=== PATIENT | female | born 1940 | race Caucasian/White ===

== ENCOUNTER → 2016-10-28 | Outpatient (CLI) | payer OTHER ==
[~2016-10-28] MED LIST: ACTOS 30 MG TAB30 M2 PO; ATENOLOL 50MG T50 M1 PO; AUGMENTIN 875875 MG PO; BAYER CHEWABLE81 MG PO; DUONEB 2.5-0.5 M3 ML INH; GARLIC1 EACH PO; HYDROCHLOROTHIA25 M2 PO; JANUVIA100 MG PO; JANUVIA25 MG PO; LEVOTHYROXINE0.05 MG PO; LIPITOR 20 MG T20 M1 PO; LISINOPRIL40 MG PO; MUCINEX TA600 MG/TA2 PO; TESSALON PERLE100 M1 PO
== END ==
LOC: ULTRA 09:46
DX: H93.A3 Pulsatile tinnitus, bilateral (principal); R55 Syncope and collapse

== ENCOUNTER → 2018-08-09 | Outpatient (CLI) | payer OTHER | LOC: ULTRA 10:43 | DX: E11.621 Type 2 diabetes mellitus with foot ulcer (principal); L97.528 Non-pressure chronic ulcer of other part of left foot with other specified severity; I11.0 Hypertensive heart disease with heart failure; I50.9 Heart failure, unspecified ==

== ENCOUNTER → 2020-03-21 | Outpatient (CLI) | payer OTHER | LOC: RAD 11:44 | PROVIDERS: ATTEND Pediatrics | DX: J81.0 Acute pulmonary edema (principal); I51.7 Cardiomegaly; I50.9 Heart failure, unspecified; J84.10 Pulmonary fibrosis, unspecified ==

== ENCOUNTER → 2020-05-02 | Outpatient (CLI) | payer OTHER | LOC: RAD 12:24 | PROVIDERS: ATTEND Pediatrics | DX: R91.8 Other nonspecific abnormal finding of lung field (principal) ==

== ENCOUNTER → 2020-06-18 | Outpatient (CLI) | payer OTHER | LOC: HYPER 08:50 | PROVIDERS: ATTEND Specialist | DX: E11.622 Type 2 diabetes mellitus with other skin ulcer (principal); I87.312 Chronic venous hypertension (idiopathic) with ulcer of left lower extremity; L97.222 Non-pressure chronic ulcer of left calf with fat layer exposed; S80.812A Abrasion, left lower leg, initial encounter; E11.22 Type 2 diabetes mellitus with diabetic chronic kidney disease; I12.9 Hypertensive chronic kidney disease with stage 1 through stage 4 chronic kidney disease, or unspecified chronic kidney disease; N18.9 Chronic kidney disease, unspecified; E66.01 Morbid (severe) obesity due to excess calories; E78.5 Hyperlipidemia, unspecified; J42 Unspecified chronic bronchitis; Z68.41 Body mass index [BMI] 40.0-44.9, adult; Z79.4 Long term (current) use of insulin; Z79.82 Long term (current) use of aspirin; W31.89XA Contact with other specified machinery, initial encounter; Z98.49 Cataract extraction status, unspecified eye; Y93.89 Activity, other specified; Y92.89 Other specified places as the place of occurrence of the external cause; Y99.8 Other external cause status ==

== ENCOUNTER → 2020-06-25 | Outpatient (CLI) | payer OTHER | LOC: HYPER 10:42 | PROVIDERS: ATTEND Specialist | DX: E11.622 Type 2 diabetes mellitus with other skin ulcer (principal); I87.312 Chronic venous hypertension (idiopathic) with ulcer of left lower extremity; I70.248 Atherosclerosis of native arteries of left leg with ulceration of other part of lower leg; L97.822 Non-pressure chronic ulcer of other part of left lower leg with fat layer exposed; I70.242 Atherosclerosis of native arteries of left leg with ulceration of calf; L97.222 Non-pressure chronic ulcer of left calf with fat layer exposed; S80.812D Abrasion, left lower leg, subsequent encounter; E11.22 Type 2 diabetes mellitus with diabetic chronic kidney disease; I12.9 Hypertensive chronic kidney disease with stage 1 through stage 4 chronic kidney disease, or unspecified chronic kidney disease; N18.9 Chronic kidney disease, unspecified; E66.01 Morbid (severe) obesity due to excess calories; E78.5 Hyperlipidemia, unspecified; J42 Unspecified chronic bronchitis; Z68.41 Body mass index [BMI] 40.0-44.9, adult; Z79.4 Long term (current) use of insulin; Z79.82 Long term (current) use of aspirin; W31.89XD Contact with other specified machinery, subsequent encounter ==

== ENCOUNTER → 2020-06-27 | Outpatient (CLI) | payer OTHER | LOC: ULTRA 10:51 | PROVIDERS: ATTEND Neuromusculoskeletal Medicine & OMM | DX: M79.89 Other specified soft tissue disorders (principal) ==

== ENCOUNTER → 2020-07-02 | Outpatient (CLI) | payer OTHER | LOC: HYPER 07:46 | PROVIDERS: ATTEND Specialist | DX: E11.622 Type 2 diabetes mellitus with other skin ulcer (principal); I87.312 Chronic venous hypertension (idiopathic) with ulcer of left lower extremity; I70.248 Atherosclerosis of native arteries of left leg with ulceration of other part of lower leg; L97.822 Non-pressure chronic ulcer of other part of left lower leg with fat layer exposed; I70.242 Atherosclerosis of native arteries of left leg with ulceration of calf; L97.222 Non-pressure chronic ulcer of left calf with fat layer exposed; S80.812D Abrasion, left lower leg, subsequent encounter; E11.22 Type 2 diabetes mellitus with diabetic chronic kidney disease; I12.9 Hypertensive chronic kidney disease with stage 1 through stage 4 chronic kidney disease, or unspecified chronic kidney disease; N18.9 Chronic kidney disease, unspecified; E66.01 Morbid (severe) obesity due to excess calories; E78.5 Hyperlipidemia, unspecified; J42 Unspecified chronic bronchitis; Z68.41 Body mass index [BMI] 40.0-44.9, adult; Z79.4 Long term (current) use of insulin; Z79.82 Long term (current) use of aspirin; W31.89XD Contact with other specified machinery, subsequent encounter ==

== ENCOUNTER → 2020-07-09 | Outpatient (CLI) | payer OTHER | LOC: HYPER 09:57 | PROVIDERS: ATTEND Specialist | DX: E11.622 Type 2 diabetes mellitus with other skin ulcer (principal); I87.312 Chronic venous hypertension (idiopathic) with ulcer of left lower extremity; I70.248 Atherosclerosis of native arteries of left leg with ulceration of other part of lower leg; L97.822 Non-pressure chronic ulcer of other part of left lower leg with fat layer exposed; I70.242 Atherosclerosis of native arteries of left leg with ulceration of calf; L97.222 Non-pressure chronic ulcer of left calf with fat layer exposed; S80.812D Abrasion, left lower leg, subsequent encounter; E11.22 Type 2 diabetes mellitus with diabetic chronic kidney disease; I12.9 Hypertensive chronic kidney disease with stage 1 through stage 4 chronic kidney disease, or unspecified chronic kidney disease; N18.9 Chronic kidney disease, unspecified; E11.51 Type 2 diabetes mellitus with diabetic peripheral angiopathy without gangrene; E66.01 Morbid (severe) obesity due to excess calories; E78.5 Hyperlipidemia, unspecified; J42 Unspecified chronic bronchitis; Z68.41 Body mass index [BMI] 40.0-44.9, adult; Z79.82 Long term (current) use of aspirin; Z79.4 Long term (current) use of insulin; W31.89XD Contact with other specified machinery, subsequent encounter ==

== ENCOUNTER → 2020-07-09 | Outpatient (CLI) | payer OTHER | LOC: SJCVCIMAG 11:59 | PROVIDERS: ATTEND Specialist | DX: I73.9 Peripheral vascular disease, unspecified (principal) ==

== ENCOUNTER → 2020-07-16 | Outpatient (CLI) | payer OTHER | LOC: HYPER 08:47 | PROVIDERS: ATTEND Specialist | DX: E11.622 Type 2 diabetes mellitus with other skin ulcer (principal); I87.312 Chronic venous hypertension (idiopathic) with ulcer of left lower extremity; I70.248 Atherosclerosis of native arteries of left leg with ulceration of other part of lower leg; L97.822 Non-pressure chronic ulcer of other part of left lower leg with fat layer exposed; I70.242 Atherosclerosis of native arteries of left leg with ulceration of calf; L97.222 Non-pressure chronic ulcer of left calf with fat layer exposed; S80.812D Abrasion, left lower leg, subsequent encounter; E11.22 Type 2 diabetes mellitus with diabetic chronic kidney disease; I12.9 Hypertensive chronic kidney disease with stage 1 through stage 4 chronic kidney disease, or unspecified chronic kidney disease; N18.9 Chronic kidney disease, unspecified; E11.51 Type 2 diabetes mellitus with diabetic peripheral angiopathy without gangrene; E66.01 Morbid (severe) obesity due to excess calories; E78.5 Hyperlipidemia, unspecified; J42 Unspecified chronic bronchitis; Z68.41 Body mass index [BMI] 40.0-44.9, adult; Z79.82 Long term (current) use of aspirin; Z79.4 Long term (current) use of insulin; W31.89XD Contact with other specified machinery, subsequent encounter ==

== ENCOUNTER → 2020-08-06 | Outpatient (CLI) | payer OTHER | LOC: HYPER 13:51 | PROVIDERS: ATTEND Emergency Medicine | DX: E11.622 Type 2 diabetes mellitus with other skin ulcer (principal); I87.312 Chronic venous hypertension (idiopathic) with ulcer of left lower extremity; I70.248 Atherosclerosis of native arteries of left leg with ulceration of other part of lower leg; L97.822 Non-pressure chronic ulcer of other part of left lower leg with fat layer exposed; I70.242 Atherosclerosis of native arteries of left leg with ulceration of calf; L97.222 Non-pressure chronic ulcer of left calf with fat layer exposed; S80.812D Abrasion, left lower leg, subsequent encounter; E11.22 Type 2 diabetes mellitus with diabetic chronic kidney disease; I12.9 Hypertensive chronic kidney disease with stage 1 through stage 4 chronic kidney disease, or unspecified chronic kidney disease; N18.9 Chronic kidney disease, unspecified; E11.51 Type 2 diabetes mellitus with diabetic peripheral angiopathy without gangrene; E66.01 Morbid (severe) obesity due to excess calories; E78.5 Hyperlipidemia, unspecified; J42 Unspecified chronic bronchitis; Z68.41 Body mass index [BMI] 40.0-44.9, adult; Z79.82 Long term (current) use of aspirin; Z79.4 Long term (current) use of insulin; W31.89XD Contact with other specified machinery, subsequent encounter ==

== ENCOUNTER 2020-08-14 16:53 | Inpatient (IN) | payer OTHER ==
[~2020-08-14] VITALS: Ht 152.4 cm; Wt 106.1 kg
[2020-08-14 17:02] VITALS: BP 111/49
[2020-08-14] MEDS ORDERED: CRANBERRY200 MG PO (17:43)
[2020-08-14] MEDS ORDERED: LOSARTAN POTASS50 MG PO (17:43)
[2020-08-14] MEDS ORDERED: FUROSEMIDE 20 M20 M1 PO (17:46)
[2020-08-14 17:53] LABS: ABSOLUTE NEUTROPHILS 6.6 thou/uL (1.4-8.2); BASOPHILS 1.1 % (0.0-2.0); EOSINOPHILS 2.6 % (0.0-3.0); HEMATOCRIT 34.7 % (37.0-47.0); HEMOGLOBIN 11.2 gm/dL (12.0-15.0); LYMPHOCYTES 13.6 % (24.0-44.0); MCH 29.9 pg (26.0-34.0); MCHC 32.4 g/dL (28.0-37.0); MCV 92.2 fL (80.0-100.0); MONOCYTES 6.4 % (1.0-8.0); PLATELET COUNT 247 thou/uL (150-400); POLYS 76.3 % (36.0-66.0); RBC 3.76 mil/uL (4.20-5.00); RDW 14.9 % (10.5-14.5); WBC 8.7 thou/uL (4.0-11.0)
[2020-08-14 18:01] LABS: ANION GAP 5 mmol/L (7-16); BUN 31 mg/dL (7-18); CHLORIDE 104 mmol/L (98-107); CO2 31 mmol/L (21-32); GLUCOSE 115 mg/dL (74-106); POTASSIUM 4.5 mmol/L (3.5-5.1); SODIUM 140 mmol/L (136-145)
[2020-08-14 18:12] LABS: ALBUMIN 3.3 g/dL (3.4-5.0); SGOT 21 U/L (15-37); SGPT 21 U/L (30-65); TOTAL BILIRUBIN 0.4 mg/dL (0.2-1.0); TOTAL PROTEIN 6.7 g/dL (6.4-8.2); TROPONIN-I <0.06 ng/mL (<0.06)
[2020-08-14 20:05] VITALS: BP 125/73
[2020-08-14 21:20] VITALS: BP 117/48
--- NOTE | 2020-08-14 22:30 | NUR ---
PT IS ALERT AND ORIENTED X4. LUNGS ARE CLEAR ON ROOM AIR. DENIES ANY PAIN. REPORTS SHE KRISTIE LIGHT HEADED YESTERDAY. AND BRADYCARDIA NOTED SO ADMISSION TO ROOM 219 VIA WHEEL CHAIR. PT IS PLEASANT. REPORTS SHE SEES A WOUND DOCTOR FOR HER LEFT LOWER LEG. CURENTLY SHE HAS ZERFORM ON IT. REPORTS PUTTING A CREAM ON IT TOO. ABDOMEN IS ROUND AND SOFT. BOWEL SOUNDS ACTIVE X4. BLOOD SUGAR TAKEN ON ADMISSION AND WNL. CALL LIGHT WITHIN REACH IF NEEDS ASSISTANCE. WILL CONTINUE TO MONITOR AND ASSESS
[2020-08-15] VITALS: BP 131/73
[2020-08-15 04:56] VITALS: BP 116/22
[2020-08-15 05:52] LABS: CALCIUM 9.3 mg/dL (8.5-10.1); CREATININE 1.8 mg/dL (0.6-1.0); POTASSIUM 4.3 mmol/L (3.5-5.1)
--- NOTE | 2020-08-15 07:20 | EKG ---
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[place] : 1940 Requested By: Joey Zavala Order Number: [id number] MD: Dwight Faye Measurements Intervals [place] Rate: 62 P: 0 NM: 249 QRS: -42 QRSD: 107 T: 62 QT: 436 QTc: 443 Interpretive Statements Sinus rhythm Prolonged NM interval Left anterior fascicular block Abnormal R-wave progression, late transition Compared to ECG 08/14/2020 17:09:24 First degree AV block now present Left anterior fascicular block now present Junctional rhythm no longer present Ventricular premature complex(es) no longer present Myocardial infarct finding no longer present Left ventricular hypertrophy no longer present Q waves no longer present Electronically Signed On 08-15-2020 7:20:12 TECHNICAL SOLUTIONS CONSULTANT by Dwight Faye [email or web address] <ELECTRONICALLY SIGNED> By: Dwight Faye MD, [facility] 08/15/20 07 48 48 Dwight Faye MD, [facility] /EPI
--- NOTE | 2020-08-15 07:20 | EKG ---
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 : 1940 Requested By: Cassidy Donovan Order Number: [id number] MD: Dwight Faye Measurements Intervals [place] Rate: 39 P: TX: QRS: -56 QRSD: 92 T: 78 QT: 472 QTc: 381 Interpretive Statements Junctional rhythm Ventricular premature complex Inferior infarct, old Baseline wander in lead(s) V6 Compared to ECG 01/07/2014 21:57:46 Junctional rhythm now present Ventricular premature complex(es) now present Myocardial infarct finding now present Left ventricular hypertrophy now present Q waves now present Sinus rhythm no longer present Left-axis deviation no longer present Electronically Signed On 08-15-2020 7:19:45 INSPECTOR [employer] COMMODITIES by Dwight Faye [email or web address] <ELECTRONICALLY SIGNED> By: Dwight Faye MD, FACC 08/15/20 0719 170 170 Dwight Faye MD, [facility] /EPI
--- NOTE | 2020-08-15 10:01 | 2DMMODE ---
[facility] [place] [address] 2 D/M-MODE ECHOCARDIOGRAM Name: KESHAWN DOMINGUEZ Gayatri Room #: 219-P [facility] M.R.#: [id number] Admission: 08/14/20 Attend Phys: Ivis Santiago Discharge: Date of : 40 Report #: [id number] THIS REPORT FOR: cc: Shaka Valdez,Dwight Chowdary MD [facility] ~ APPROVED REPORT Study performed: 08/15/2020 08:28:20 EXAM: Comprehensive 2D, Doppler, and color-flow Echocardiogram Patient Location: Bedside Room #: 219 Status: routine BSA: 2.00 HR: 53 bpm BP: 131/73 mmHg Rhythm: Bradycardia Other Information Study Quality: Good Indications Congestive Heart Failure Diabetes Dyspnea Hypertension/HDD 2D Dimensions RVDd: 32.89 mm IVSd: 10.22 (7-11mm) LVOT Diam: 18.16 (18-24mm) LVDd: 47.97 mm PWd: 9.59 (7-11mm) Ascending Ao: 29.22 (22-36mm) LVDs: 34.35 (25-40mm) Left Atrium: 33.92 (27-40mm) Aortic Root: 26.41 mm IVC: 19.00 mm Volumes Left Atrial Volume (Systole) Single Plane 4CH: 64.82 mL Single Plane 2CH: 52.44 mL LA ESV Index: 31.00 mL/m2 Aortic Valve AoV Peak Beka.: 1.98 m/s [facility] [place] [address] 2 D/M-MODE ECHOCARDIOGRAM Name: KESHAWN DOMINGUEZ Room #: 219-P [facility] IN .R.#: [id number] Admission: 08/14/20 Attend Phys: Ivis Newman Discharge: Date of : 40 Report #: [id number] AO Peak Gr.: 15.70 mmHg LVOT Max P.75 mmHg LVOT Max V: 1.30 m/s KATHRYN Vmax: 1.70 cm2 AI Vmax: 3.44 m/s AI Mitchell: 2.99 m/s2 AI PHT: 333.13 ms Mitral Valve E/A Ratio: 0.9 MV Decel. Time: 254.95 ms MV E Max Beka.: 1.10 m/s MV A Beka.: 1.26 m/s MV PHT: 73.93 ms IVRT: 64.59 ms Pulmonary Valve PV Peak Beka.: 1.53 m/s PV Peak Gr.: 9.36 mmHg Pulmonary Vein P Vein S: 0.82 m/s P Vein A: 0.32 m/s P Vein D: 0.60 m/s P Vein A Dur.: 152.2 msec P Vein S/D Ratio: 1.37 Tricuspid Valve TR Peak Beka.: 2.91 m/s TR Peak Gr.: 33.81 mmHg PA Pressure: 39.00 mmHg Left Ventricle The left ventricle is normal size. There is normal LV segmental wall motion. There is normal left ventricular wall thickness. The left ventricular systolic function is normal. The left ventricular ejection fraction is within the normal range. LVEF is 55-60%. Grade I - abnormal relaxation pattern. Right Ventricle The right ventricle is normal size. The right ventricular systolic function is normal. Atria Left atrium is borderline dilated. Right atrium is at the upper limits of normal. Aortic Valve The aortic valve is normal in structure. The Aortic valve is sclerotic. Trace aortic regurgitation. There is no aortic valvular [facility] [address] [place] [address] 2 D/M-MODE ECHOCARDIOGRAM Name: KESHAWN DOMINGUEZ Room #: 219-P [facility] IN .R.#: [id number] Admission: 08/14/20 Attend Phys: Ivis Newman Discharge: Date of : 40 Report #: [id number] stenosis. Mitral Valve The mitral valve is normal in structure. Mild mitral regurgitation. No evidence of mitral valve stenosis. Tricuspid Valve The tricuspid valve is normal in structure. There is trace tricuspid regurgitation. Estimated PAP 39 mmHg. There is mild pulmonary hypertension. Pulmonic Valve The pulmonary valve is normal in structure. There is no pulmonic valvular regurgitation. Great Vessels The aortic root is normal in size. IVC is normal in size and collapses >50% with inspiration. Pericardium There is no pericardial effusion. <Conclusion> Normal left ventricular size/wall thickness Ejection fraction 55% Grade 1 diastolic dysfunction Normal right ventricular size/function Normal atrial size Aortic valve sclerosis without stenosis Trace aortic valve insufficiency Mild mitral annular calcification Mild mitral insufficiency Trace tricuspid valve insufficiency Pulmonary artery systolic pressure estimated at 39 mmHg No pericardial effusion <ELECTRONICALLY SIGNED> By: Dwight Faye MD, FACC 08/15/20 1001 1001 1001 Dwight Faye MD, FACC /INF
[2020-08-15 10:30] VITALS: BP 147/96
[2020-08-15 11:15] VITALS: BP 122/50
--- NOTE | 2020-08-15 12:46 | NUR ---
Patient admits to [facility] with SOA/weakness/bradycardia. Patient resides at home with spouse and 5 dogs. She had a dtr who last year from COPD. She reports 2 steps to enter home then 7 steps to main living area. She has a walker. In community she will use grocery cart or store scooter for shopping. She reports no difficulty with steps due to railing. Patient has oxygen at home but cannot recall company. Independent with adls. She and spouse cont to drive. She cont to drive. casemgt following.
[2020-08-15 17:00] VITALS: BP 128/58
--- NOTE | 2020-08-15 18:38 | NUR ---
PT IS AXOX4, PLEASANT. AFEBRILE, HR BEGAN BRADYCARDIC. VSS. CARDIOLOGY CONSULTED, WOUND CARE CONSULTED. EKG AND ECG COMPLETED IN AM. WOUND CARE PROVIDED ON LEFT LOWER LEG. PT ON STRICT I&O, FLUID RESTRICTION OF 1750ML. POC IS TO DISCHARGE 08/16/20. PT AT BEDSIDE THIS PM. NO CONCERNS AT THIS TIME.
[2020-08-15 20:30] VITALS: BP 121/83
[2020-08-16 04:45] VITALS: BP 122/51
[2020-08-16 05:30] LABS: ANION GAP 7 mmol/L (7-16); BUN 38 mg/dL (7-18); CALCIUM 8.7 mg/dL (8.5-10.1); CHLORIDE 100 mmol/L (98-107); CO2 30 mmol/L (21-32); CREATININE 1.9 mg/dL (0.6-1.0); GLUCOSE 111 mg/dL (74-106); PHOSPHORUS 4.2 mg/dL (2.5-4.9); POTASSIUM 3.5 mmol/L (3.5-5.1); SODIUM 137 mmol/L (136-145); TROPONIN-I <0.06 ng/mL (<0.06)
--- NOTE | 2020-08-16 07:02 | NUR ---
PT IS ALERT AND ORIENTED X4. LUNGS ARE COARSE ON 2 LITERS NASAL CANULA AT THIS TIME. WOUND OF LEFT LOWER LEG CHANGED AND DRESSING DONE THIS AM WITH CARE. ACURATE INTAKE AND OUTPUT AND FLUID RESTRICTION MAINTATINED. UP AMBULATES TO BATHROOM. DOES WANT SOMETHING LIKE MUCINEX SHE REQUEST THIS AM. FEELS LIKE SHE NEEDS SOMETHING TO DRY HER CONGESTION UP. WILL CONTINUE TO MONTIOR AND ASSESS PER NURSING
--- NOTE | 2020-08-16 07:10 | EKG ---
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 : 1940 Requested By: Vivian Sow Order Number: [id number] MD: Dwight Faye Measurements Intervals [place] Rate: 63 P: 43 VA: 179 QRS: -42 QRSD: 92 T: 52 QT: 442 QTc: 453 Interpretive Statements Sinus rhythm Multiple premature complexes, vent & supraven Abnormal R-wave progression, late transition Compared to ECG 08/14/2020 18:49:27 First degree AV block no longer present Electronically Signed On 08-16-2020 7:10:05 HEALTHCARE SPECIALIST by Dwight Fyae [email or web address] <ELECTRONICALLY SIGNED> By: Dwight Faye MD, [facility] 08/16/20 0710 6 0807 Dwight Faye MD, [facility] /EPI
[2020-08-16 07:53] VITALS: BP 127/57
--- NOTE | 2020-08-16 09:12 | NUR ---
assess due to pt with chronic lower extremity ulcer. Admit with CHF, pulmonary edema. On lasix, torsemide. Class III extreme obesity with BMI of 45.7. Good appetite, high protein food choices. Pt on low Na, carb control and 1750ml fluid restriction. Reviewed diet with pt and encouraged compliance at home. Pt verbalized understanding. Hoping to dc today. Low nutrition risk
[2020-08-16] MEDS ORDERED: TORSEMIDE20 MG PO (09:34)
[2020-08-16 09:48] VITALS: BP 127/57
--- NOTE | 2020-08-22 09:18 | HC ---
[facility] [place] [address] CONSULTATION Name: KESHAWN DOMINGUEZ Room #: 219-P [facility] IN M.R.#: [id number] Admission: 08/15/20 Attend Phys: Ivis Santiago Discharge: 08/16/20 Date of : 40 Report #: [id number] THIS REPORT FOR: cc: Shaka Valdez,Shaka Lux,Jaden Hoover MD ~ DATE OF SERVICE: 08/15/2020 WOUND CARE CONSULTATION PERSONAL PHYSICIAN: Dr. Valdez. CHIEF COMPLAINT: Left lower leg ulcerations. HISTORY OF PRESENT ILLNESS: The patient is an 80-year-old white female who is admitted for complaints of increasing shortness of breath over the past several days. The patient has been followed by us in the wound clinic for left lower extremity venous leg ulcers. The patient was just seen this past week and was doing well. We have been asked to follow the leg ulcers while she is here in the hospital. The patient denies any other new ulcerations. PAST MEDICAL HISTORY: Significant for hypertension, hyperlipidemia, diabetes mellitus, previous DVT, congestive heart failure. CURRENT MEDICATIONS: Multiple, I reviewed the patient's medication list. DRUG ALLERGIES: None. SOCIAL HISTORY: The patient does not smoke or drink alcohol. FAMILY HISTORY: Not pertinent to current medical condition. REVIEW OF SYSTEMS: CONSTITUTIONAL: The patient denies fevers or chills. NEUROLOGIC: The patient has overall generalized weakness, but no isolated weakness in arms or legs. EYES: No complaints. ENT: No complaints. CARDIAC: The patient has chronic lower extremity edema, but denies chest pain or palpitation. RESPIRATORY: The patient complains of increasing shortness of breath over the past several days with associated dry cough. GASTROINTESTINAL: The patient denies nausea, vomiting, or abdominal pain. GENITOURINARY: The patient denies urgency or frequency. MUSCULOSKELETAL: No complaints. [facility] [address] [place] [address] CONSULTATION Name: KESHAWN DOMINGUEZ Room #: 219-P [facility]#: [id number] Admission: 08/15/20 Attend Phys: Ivis Santiago Discharge: 08/16/20 Date of : 40 Report #: [id number] SKIN: There is chronic ulceration on the left lateral lower extremity. PHYSICAL EXAMINATION: VITAL SIGNS: Temperature 37.2, pulse 78, respirations 18, BP 127/57. GENERAL: This is an alert and oriented x 3, pleasant white female who is in no obvious distress. HEENT: Normocephalic, atraumatic. Mucous membranes are moist. Pupils are round. Sclerae white. NECK: Without JVD. LUNGS: Slightly diminished breath sounds heard throughout. HEART: Regular. ABDOMEN: Obese, soft, nontender. EXTREMITIES: The patient has 2+ edema bilateral lower extremities. On the left lateral lower extremities, 2 discrete ulcerations, which are fairly clean and granulating without signs of erythema, warmth or tenderness. There are no signs of infection. Periwound is otherwise intact with minimal serosanguineous drainage noted without odor. Distal neurovascular is otherwise intact. NEUROLOGIC: Cranial nerves 2-12 grossly intact. Motor and sensory grossly intact. LABORATORY DATA: White count 8.7, hemoglobin 11.2, albumin 3.0. IMPRESSION: 1. Chronic ulcerations, left lower extremity, limited breakdown subcutaneous tissue secondary to #2. 2. Venous insufficiency with edema. 3. Protein-calorie malnutrition -- moderate with albumin of 3.0. 4. Acute exacerbation of congestive heart failure. 5. Diabetes mellitus. 6. Hypertension. PLAN: At this time, we will start foam dressings to the left lower extremity ulcerations with Kerlix and Rakesh from toes to knees for control of edema. The patient will elevate her legs as much as possible. We will make sure we maximize the patient's oral protein supplementation for healing. We will continue all other current medications. Continue to follow the patient. I appreciate the ability to consult. <ELECTRONICALLY SIGNED> By: Jaden Urias MD 08/22/2018 0 5 Jaden Urias MD /nt
== END 2020-08-16 11:50 | disposition home or self-care (01) | DRG 292 ==
LOC: ER 16:53 → 2N 19:18 → EROBS 19:18 → 2N 20:29
PROVIDERS: Emergency Medicine; Nurse Practitioner Adult Health; Nurse Practitioner Family; ADMIT Hospitalist; ATTEND Hospitalist
DX: I11.0 Hypertensive heart disease with heart failure (principal); N17.9 Acute kidney failure, unspecified; L97.829 Non-pressure chronic ulcer of other part of left lower leg with unspecified severity; J81.1 Chronic pulmonary edema; E44.0 Moderate protein-calorie malnutrition; Z68.42 Body mass index [BMI] 45.0-49.9, adult; I50.9 Heart failure, unspecified; R00.1 Bradycardia, unspecified; Z96.653 Presence of artificial knee joint, bilateral; E11.42 Type 2 diabetes mellitus with diabetic polyneuropathy; K59.00 Constipation, unspecified; I87.2 Venous insufficiency (chronic) (peripheral); Z90.49 Acquired absence of other specified parts of digestive tract; Z86.718 Personal history of other venous thrombosis and embolism; Z82.69 Family history of other diseases of the musculoskeletal system and connective tissue; Z79.82 Long term (current) use of aspirin; Z79.899 Other long term (current) drug therapy; I50.33 Acute on chronic diastolic (congestive) heart failure
CPT/HCPCS: 10081

== ENCOUNTER → 2020-08-20 | Outpatient (CLI) | payer OTHER ==
[~2020-08-20] MED LIST changes: +CRANBERRY200 MG PO; +FUROSEMIDE 20 M20 M1 PO; +LOSARTAN POTASS50 MG PO; +TORSEMIDE20 MG PO
== END ==
LOC: HYPER 13:38
PROVIDERS: ATTEND Emergency Medicine
DX: E11.622 Type 2 diabetes mellitus with other skin ulcer (principal); I87.312 Chronic venous hypertension (idiopathic) with ulcer of left lower extremity; I70.248 Atherosclerosis of native arteries of left leg with ulceration of other part of lower leg; L97.822 Non-pressure chronic ulcer of other part of left lower leg with fat layer exposed; I70.242 Atherosclerosis of native arteries of left leg with ulceration of calf; L97.222 Non-pressure chronic ulcer of left calf with fat layer exposed; S80.812D Abrasion, left lower leg, subsequent encounter; E11.22 Type 2 diabetes mellitus with diabetic chronic kidney disease; I12.9 Hypertensive chronic kidney disease with stage 1 through stage 4 chronic kidney disease, or unspecified chronic kidney disease; N18.9 Chronic kidney disease, unspecified; E11.51 Type 2 diabetes mellitus with diabetic peripheral angiopathy without gangrene; E66.01 Morbid (severe) obesity due to excess calories; E78.5 Hyperlipidemia, unspecified; J42 Unspecified chronic bronchitis; Z68.41 Body mass index [BMI] 40.0-44.9, adult; Z79.82 Long term (current) use of aspirin; Z79.4 Long term (current) use of insulin; W31.89XD Contact with other specified machinery, subsequent encounter

== ENCOUNTER → 2020-08-23 | Outpatient (CLI) | payer OTHER | LOC: SJCVC 10:13 | PROVIDERS: ATTEND Nurse Practitioner Adult Health | DX: R94.31 Abnormal electrocardiogram [ECG] [EKG] (principal); R00.1 Bradycardia, unspecified; R06.09 Other forms of dyspnea; I10 Essential (primary) hypertension; E78.00 Pure hypercholesterolemia, unspecified; E11.622 Type 2 diabetes mellitus with other skin ulcer; L97.828 Non-pressure chronic ulcer of other part of left lower leg with other specified severity; L97.818 Non-pressure chronic ulcer of other part of right lower leg with other specified severity; E03.9 Hypothyroidism, unspecified; J45.909 Unspecified asthma, uncomplicated; I25.5 Ischemic cardiomyopathy; E11.51 Type 2 diabetes mellitus with diabetic peripheral angiopathy without gangrene; E78.5 Hyperlipidemia, unspecified; E55.9 Vitamin D deficiency, unspecified; Z79.891 Long term (current) use of opiate analgesic; Z87.01 Personal history of pneumonia (recurrent); Z72.89 Other problems related to lifestyle; Z79.899 Other long term (current) drug therapy; Z79.82 Long term (current) use of aspirin ==

== ENCOUNTER → 2020-08-23 | Outpatient (CLI) | payer OTHER | LOC: CAT 11:38 | PROVIDERS: ATTEND Internal Medicine Cardiovascular Disease | DX: Z13.6 Encounter for screening for cardiovascular disorders (principal); I25.10 Atherosclerotic heart disease of native coronary artery without angina pectoris; E78.00 Pure hypercholesterolemia, unspecified ==

== ENCOUNTER → 2020-09-10 | Outpatient (CLI) | payer OTHER | LOC: HYPER 11:52 | PROVIDERS: ATTEND Emergency Medicine | DX: E11.622 Type 2 diabetes mellitus with other skin ulcer (principal); I87.312 Chronic venous hypertension (idiopathic) with ulcer of left lower extremity; I70.248 Atherosclerosis of native arteries of left leg with ulceration of other part of lower leg; L97.822 Non-pressure chronic ulcer of other part of left lower leg with fat layer exposed; S80.812D Abrasion, left lower leg, subsequent encounter; E11.22 Type 2 diabetes mellitus with diabetic chronic kidney disease; I12.9 Hypertensive chronic kidney disease with stage 1 through stage 4 chronic kidney disease, or unspecified chronic kidney disease; N18.9 Chronic kidney disease, unspecified; E11.51 Type 2 diabetes mellitus with diabetic peripheral angiopathy without gangrene; E66.01 Morbid (severe) obesity due to excess calories; E78.5 Hyperlipidemia, unspecified; J42 Unspecified chronic bronchitis; Z68.41 Body mass index [BMI] 40.0-44.9, adult; Z79.82 Long term (current) use of aspirin; Z79.4 Long term (current) use of insulin; W31.89XD Contact with other specified machinery, subsequent encounter ==

== ENCOUNTER → 2020-09-19 | Outpatient (CLI) | payer OTHER | LOC: SJCVCIMAG 08:49 | PROVIDERS: ATTEND Internal Medicine Cardiovascular Disease | DX: I25.89 Other forms of chronic ischemic heart disease (principal); R00.1 Bradycardia, unspecified; E78.5 Hyperlipidemia, unspecified; I11.0 Hypertensive heart disease with heart failure; I50.9 Heart failure, unspecified; E11.9 Type 2 diabetes mellitus without complications ==

== ENCOUNTER → 2020-09-25 | Outpatient (CLI) | payer OTHER | LOC: HYPER 14:09 | PROVIDERS: ATTEND Emergency Medicine | DX: E11.622 Type 2 diabetes mellitus with other skin ulcer (principal); I87.312 Chronic venous hypertension (idiopathic) with ulcer of left lower extremity; I70.248 Atherosclerosis of native arteries of left leg with ulceration of other part of lower leg; L97.822 Non-pressure chronic ulcer of other part of left lower leg with fat layer exposed; S80.812D Abrasion, left lower leg, subsequent encounter; E11.22 Type 2 diabetes mellitus with diabetic chronic kidney disease; I12.9 Hypertensive chronic kidney disease with stage 1 through stage 4 chronic kidney disease, or unspecified chronic kidney disease; N18.9 Chronic kidney disease, unspecified; E11.51 Type 2 diabetes mellitus with diabetic peripheral angiopathy without gangrene; E66.01 Morbid (severe) obesity due to excess calories; E78.5 Hyperlipidemia, unspecified; J42 Unspecified chronic bronchitis; Z68.41 Body mass index [BMI] 40.0-44.9, adult; Z79.82 Long term (current) use of aspirin; Z79.4 Long term (current) use of insulin; W31.89XD Contact with other specified machinery, subsequent encounter ==

== ENCOUNTER → 2020-10-17 | Outpatient (CLI) | payer OTHER | LOC: HYPER 10:25 | PROVIDERS: ATTEND Emergency Medicine | DX: E11.622 Type 2 diabetes mellitus with other skin ulcer (principal); I87.312 Chronic venous hypertension (idiopathic) with ulcer of left lower extremity; I70.248 Atherosclerosis of native arteries of left leg with ulceration of other part of lower leg; L97.822 Non-pressure chronic ulcer of other part of left lower leg with fat layer exposed; S80.812D Abrasion, left lower leg, subsequent encounter; E11.22 Type 2 diabetes mellitus with diabetic chronic kidney disease; I12.9 Hypertensive chronic kidney disease with stage 1 through stage 4 chronic kidney disease, or unspecified chronic kidney disease; N18.9 Chronic kidney disease, unspecified; E11.51 Type 2 diabetes mellitus with diabetic peripheral angiopathy without gangrene; E66.01 Morbid (severe) obesity due to excess calories; E78.5 Hyperlipidemia, unspecified; J42 Unspecified chronic bronchitis; Z68.41 Body mass index [BMI] 40.0-44.9, adult; Z79.82 Long term (current) use of aspirin; Z79.4 Long term (current) use of insulin; W31.89XD Contact with other specified machinery, subsequent encounter ==

== ENCOUNTER → 2020-10-29 | Outpatient (CLI) | payer OTHER | LOC: HYPER 08:05 | PROVIDERS: ATTEND Emergency Medicine | DX: E11.622 Type 2 diabetes mellitus with other skin ulcer (principal); I87.312 Chronic venous hypertension (idiopathic) with ulcer of left lower extremity; I70.248 Atherosclerosis of native arteries of left leg with ulceration of other part of lower leg; L97.822 Non-pressure chronic ulcer of other part of left lower leg with fat layer exposed; S80.812D Abrasion, left lower leg, subsequent encounter; E11.22 Type 2 diabetes mellitus with diabetic chronic kidney disease; I12.9 Hypertensive chronic kidney disease with stage 1 through stage 4 chronic kidney disease, or unspecified chronic kidney disease; N18.9 Chronic kidney disease, unspecified; E11.51 Type 2 diabetes mellitus with diabetic peripheral angiopathy without gangrene; E66.01 Morbid (severe) obesity due to excess calories; E78.5 Hyperlipidemia, unspecified; J42 Unspecified chronic bronchitis; Z68.41 Body mass index [BMI] 40.0-44.9, adult; Z79.82 Long term (current) use of aspirin; Z79.4 Long term (current) use of insulin; W31.89XD Contact with other specified machinery, subsequent encounter ==

== ENCOUNTER → 2020-11-19 | Outpatient (CLI) | payer OTHER | LOC: HYPER 07:57 | PROVIDERS: ATTEND Emergency Medicine | DX: S81.802D Unspecified open wound, left lower leg, subsequent encounter (principal); I87.312 Chronic venous hypertension (idiopathic) with ulcer of left lower extremity; E11.622 Type 2 diabetes mellitus with other skin ulcer; I70.248 Atherosclerosis of native arteries of left leg with ulceration of other part of lower leg; L97.822 Non-pressure chronic ulcer of other part of left lower leg with fat layer exposed; E11.22 Type 2 diabetes mellitus with diabetic chronic kidney disease; S80.812D Abrasion, left lower leg, subsequent encounter; E11.51 Type 2 diabetes mellitus with diabetic peripheral angiopathy without gangrene; J42 Unspecified chronic bronchitis; E78.5 Hyperlipidemia, unspecified; E66.01 Morbid (severe) obesity due to excess calories; Z68.41 Body mass index [BMI] 40.0-44.9, adult; Z87.01 Personal history of pneumonia (recurrent); Z79.82 Long term (current) use of aspirin; Z79.84 Long term (current) use of oral hypoglycemic drugs; Z98.890 Other specified postprocedural states; Z79.899 Other long term (current) drug therapy; W18.09XD Striking against other object with subsequent fall, subsequent encounter ==

== ENCOUNTER → 2020-12-10 | Outpatient (CLI) | payer OTHER | LOC: HYPER 07:48 | PROVIDERS: ATTEND Emergency Medicine | DX: E11.622 Type 2 diabetes mellitus with other skin ulcer (principal); I87.312 Chronic venous hypertension (idiopathic) with ulcer of left lower extremity; I70.248 Atherosclerosis of native arteries of left leg with ulceration of other part of lower leg; L97.822 Non-pressure chronic ulcer of other part of left lower leg with fat layer exposed; S80.812D Abrasion, left lower leg, subsequent encounter; E11.22 Type 2 diabetes mellitus with diabetic chronic kidney disease; E11.51 Type 2 diabetes mellitus with diabetic peripheral angiopathy without gangrene; J42 Unspecified chronic bronchitis; E78.5 Hyperlipidemia, unspecified; E66.01 Morbid (severe) obesity due to excess calories; Z68.41 Body mass index [BMI] 40.0-44.9, adult; Z87.01 Personal history of pneumonia (recurrent); Z79.82 Long term (current) use of aspirin; Z79.84 Long term (current) use of oral hypoglycemic drugs; W18.09XD Striking against other object with subsequent fall, subsequent encounter ==

== ENCOUNTER → 2020-12-31 | Outpatient (CLI) | payer OTHER | LOC: HYPER 08:17 | PROVIDERS: ATTEND Emergency Medicine | DX: E11.622 Type 2 diabetes mellitus with other skin ulcer (principal); I87.312 Chronic venous hypertension (idiopathic) with ulcer of left lower extremity; I70.248 Atherosclerosis of native arteries of left leg with ulceration of other part of lower leg; L97.822 Non-pressure chronic ulcer of other part of left lower leg with fat layer exposed; I70.238 Atherosclerosis of native arteries of right leg with ulceration of other part of lower leg; L97.811 Non-pressure chronic ulcer of other part of right lower leg limited to breakdown of skin; S80.812D Abrasion, left lower leg, subsequent encounter; E11.51 Type 2 diabetes mellitus with diabetic peripheral angiopathy without gangrene; J42 Unspecified chronic bronchitis; E78.5 Hyperlipidemia, unspecified; E66.01 Morbid (severe) obesity due to excess calories; Z68.41 Body mass index [BMI] 40.0-44.9, adult; Z87.01 Personal history of pneumonia (recurrent); Z79.82 Long term (current) use of aspirin; Z79.84 Long term (current) use of oral hypoglycemic drugs; W18.09XD Striking against other object with subsequent fall, subsequent encounter ==

== ENCOUNTER → 2021-01-21 | Outpatient (CLI) | payer OTHER | LOC: HYPER 08:04 | PROVIDERS: ATTEND Emergency Medicine | DX: S81.802D Unspecified open wound, left lower leg, subsequent encounter (principal); E11.622 Type 2 diabetes mellitus with other skin ulcer; I87.312 Chronic venous hypertension (idiopathic) with ulcer of left lower extremity; I70.248 Atherosclerosis of native arteries of left leg with ulceration of other part of lower leg; L97.822 Non-pressure chronic ulcer of other part of left lower leg with fat layer exposed; S80.812D Abrasion, left lower leg, subsequent encounter; E11.51 Type 2 diabetes mellitus with diabetic peripheral angiopathy without gangrene; E78.5 Hyperlipidemia, unspecified; J42 Unspecified chronic bronchitis; E11.22 Type 2 diabetes mellitus with diabetic chronic kidney disease; I12.9 Hypertensive chronic kidney disease with stage 1 through stage 4 chronic kidney disease, or unspecified chronic kidney disease; N18.9 Chronic kidney disease, unspecified; E66.01 Morbid (severe) obesity due to excess calories; Z79.4 Long term (current) use of insulin; Z79.82 Long term (current) use of aspirin; Z68.41 Body mass index [BMI] 40.0-44.9, adult; Z87.01 Personal history of pneumonia (recurrent); Z98.890 Other specified postprocedural states; Z79.899 Other long term (current) drug therapy; W18.09XD Striking against other object with subsequent fall, subsequent encounter ==

== ENCOUNTER → 2021-02-11 | Outpatient (CLI) | payer OTHER | LOC: HYPER 07:49 | PROVIDERS: ATTEND Emergency Medicine | DX: S81.802D Unspecified open wound, left lower leg, subsequent encounter (principal); E11.622 Type 2 diabetes mellitus with other skin ulcer; I87.312 Chronic venous hypertension (idiopathic) with ulcer of left lower extremity; I70.248 Atherosclerosis of native arteries of left leg with ulceration of other part of lower leg; L97.822 Non-pressure chronic ulcer of other part of left lower leg with fat layer exposed; S80.812D Abrasion, left lower leg, subsequent encounter; E11.51 Type 2 diabetes mellitus with diabetic peripheral angiopathy without gangrene; E78.5 Hyperlipidemia, unspecified; J42 Unspecified chronic bronchitis; E11.22 Type 2 diabetes mellitus with diabetic chronic kidney disease; I12.9 Hypertensive chronic kidney disease with stage 1 through stage 4 chronic kidney disease, or unspecified chronic kidney disease; N18.9 Chronic kidney disease, unspecified; E66.01 Morbid (severe) obesity due to excess calories; Z79.4 Long term (current) use of insulin; Z79.82 Long term (current) use of aspirin; Z68.41 Body mass index [BMI] 40.0-44.9, adult; Z87.01 Personal history of pneumonia (recurrent); W18.09XD Striking against other object with subsequent fall, subsequent encounter ==

== ENCOUNTER → 2021-03-04 | Outpatient (CLI) | payer OTHER | LOC: HYPER 08:15 | PROVIDERS: ATTEND Emergency Medicine | DX: E11.622 Type 2 diabetes mellitus with other skin ulcer (principal); I87.312 Chronic venous hypertension (idiopathic) with ulcer of left lower extremity; I70.248 Atherosclerosis of native arteries of left leg with ulceration of other part of lower leg; L97.822 Non-pressure chronic ulcer of other part of left lower leg with fat layer exposed; S80.812D Abrasion, left lower leg, subsequent encounter; E11.51 Type 2 diabetes mellitus with diabetic peripheral angiopathy without gangrene; E78.5 Hyperlipidemia, unspecified; E11.22 Type 2 diabetes mellitus with diabetic chronic kidney disease; I12.9 Hypertensive chronic kidney disease with stage 1 through stage 4 chronic kidney disease, or unspecified chronic kidney disease; N18.9 Chronic kidney disease, unspecified; E66.01 Morbid (severe) obesity due to excess calories; J42 Unspecified chronic bronchitis; Z79.4 Long term (current) use of insulin; Z79.82 Long term (current) use of aspirin; Z68.41 Body mass index [BMI] 40.0-44.9, adult; Z87.01 Personal history of pneumonia (recurrent); W18.09XD Striking against other object with subsequent fall, subsequent encounter ==

== ENCOUNTER → 2021-03-25 | Outpatient (CLI) | payer OTHER | LOC: HYPER 07:52 | PROVIDERS: ATTEND Emergency Medicine | DX: E11.622 Type 2 diabetes mellitus with other skin ulcer (principal); I87.312 Chronic venous hypertension (idiopathic) with ulcer of left lower extremity; I70.248 Atherosclerosis of native arteries of left leg with ulceration of other part of lower leg; L97.822 Non-pressure chronic ulcer of other part of left lower leg with fat layer exposed; S80.812D Abrasion, left lower leg, subsequent encounter; E11.51 Type 2 diabetes mellitus with diabetic peripheral angiopathy without gangrene; E11.22 Type 2 diabetes mellitus with diabetic chronic kidney disease; I12.9 Hypertensive chronic kidney disease with stage 1 through stage 4 chronic kidney disease, or unspecified chronic kidney disease; N18.9 Chronic kidney disease, unspecified; E78.5 Hyperlipidemia, unspecified; E66.01 Morbid (severe) obesity due to excess calories; J42 Unspecified chronic bronchitis; Z79.4 Long term (current) use of insulin; Z79.82 Long term (current) use of aspirin; Z68.41 Body mass index [BMI] 40.0-44.9, adult; Z87.01 Personal history of pneumonia (recurrent); W18.09XD Striking against other object with subsequent fall, subsequent encounter ==

== ENCOUNTER → 2021-04-16 | Outpatient (CLI) | payer OTHER | LOC: HYPER 13:48 | PROVIDERS: ATTEND Emergency Medicine | DX: E11.622 Type 2 diabetes mellitus with other skin ulcer (principal); I87.312 Chronic venous hypertension (idiopathic) with ulcer of left lower extremity; I70.248 Atherosclerosis of native arteries of left leg with ulceration of other part of lower leg; L97.822 Non-pressure chronic ulcer of other part of left lower leg with fat layer exposed; E11.22 Type 2 diabetes mellitus with diabetic chronic kidney disease; I12.9 Hypertensive chronic kidney disease with stage 1 through stage 4 chronic kidney disease, or unspecified chronic kidney disease; N18.9 Chronic kidney disease, unspecified; S80.812D Abrasion, left lower leg, subsequent encounter; S81.802D Unspecified open wound, left lower leg, subsequent encounter; J42 Unspecified chronic bronchitis; E78.5 Hyperlipidemia, unspecified; E66.01 Morbid (severe) obesity due to excess calories; Z68.41 Body mass index [BMI] 40.0-44.9, adult; Z87.01 Personal history of pneumonia (recurrent); Z79.4 Long term (current) use of insulin; Z79.82 Long term (current) use of aspirin; Z79.84 Long term (current) use of oral hypoglycemic drugs; Z79.899 Other long term (current) drug therapy; W18.39XD Other fall on same level, subsequent encounter ==

== ENCOUNTER → 2021-05-06 | Outpatient (CLI) | payer OTHER | LOC: HYPER 10:32 | PROVIDERS: ATTEND Emergency Medicine | DX: I87.312 Chronic venous hypertension (idiopathic) with ulcer of left lower extremity (principal); E11.622 Type 2 diabetes mellitus with other skin ulcer; I70.248 Atherosclerosis of native arteries of left leg with ulceration of other part of lower leg; L97.822 Non-pressure chronic ulcer of other part of left lower leg with fat layer exposed; S80.812D Abrasion, left lower leg, subsequent encounter; E11.22 Type 2 diabetes mellitus with diabetic chronic kidney disease; J42 Unspecified chronic bronchitis; E78.5 Hyperlipidemia, unspecified; I10 Essential (primary) hypertension; E66.01 Morbid (severe) obesity due to excess calories; Z68.41 Body mass index [BMI] 40.0-44.9, adult; Z87.01 Personal history of pneumonia (recurrent); Z79.4 Long term (current) use of insulin; Z79.82 Long term (current) use of aspirin; Z79.84 Long term (current) use of oral hypoglycemic drugs; Z79.899 Other long term (current) drug therapy; W18.09XD Striking against other object with subsequent fall, subsequent encounter ==

== ENCOUNTER → 2021-05-28 | Outpatient (CLI) | payer OTHER | LOC: HYPER 10:04 | PROVIDERS: ATTEND Emergency Medicine | DX: S81.802D Unspecified open wound, left lower leg, subsequent encounter (principal); E11.622 Type 2 diabetes mellitus with other skin ulcer; I87.312 Chronic venous hypertension (idiopathic) with ulcer of left lower extremity; I70.248 Atherosclerosis of native arteries of left leg with ulceration of other part of lower leg; L97.822 Non-pressure chronic ulcer of other part of left lower leg with fat layer exposed; S80.812D Abrasion, left lower leg, subsequent encounter; E11.22 Type 2 diabetes mellitus with diabetic chronic kidney disease; J42 Unspecified chronic bronchitis; E78.5 Hyperlipidemia, unspecified; E66.01 Morbid (severe) obesity due to excess calories; Z68.41 Body mass index [BMI] 40.0-44.9, adult; Z87.01 Personal history of pneumonia (recurrent); Z79.4 Long term (current) use of insulin; Z79.82 Long term (current) use of aspirin; W18.31XD Fall on same level due to stepping on an object, subsequent encounter ==

== ENCOUNTER → 2021-06-24 | Outpatient (CLI) | payer OTHER | LOC: HYPER 09:13 | PROVIDERS: ATTEND Emergency Medicine | DX: S81.802D Unspecified open wound, left lower leg, subsequent encounter (principal); E11.622 Type 2 diabetes mellitus with other skin ulcer; I87.312 Chronic venous hypertension (idiopathic) with ulcer of left lower extremity; I70.248 Atherosclerosis of native arteries of left leg with ulceration of other part of lower leg; L97.822 Non-pressure chronic ulcer of other part of left lower leg with fat layer exposed; S80.812D Abrasion, left lower leg, subsequent encounter; L84 Corns and callosities; E11.22 Type 2 diabetes mellitus with diabetic chronic kidney disease; J42 Unspecified chronic bronchitis; E78.5 Hyperlipidemia, unspecified; E66.01 Morbid (severe) obesity due to excess calories; Z68.41 Body mass index [BMI] 40.0-44.9, adult; Z87.01 Personal history of pneumonia (recurrent); Z79.4 Long term (current) use of insulin; Z79.82 Long term (current) use of aspirin; W18.31XD Fall on same level due to stepping on an object, subsequent encounter ==

== ENCOUNTER → 2021-07-15 | Outpatient (CLI) | payer OTHER | LOC: HYPER 08:39 | PROVIDERS: ATTEND Emergency Medicine | DX: I87.312 Chronic venous hypertension (idiopathic) with ulcer of left lower extremity (principal); E11.622 Type 2 diabetes mellitus with other skin ulcer; I70.248 Atherosclerosis of native arteries of left leg with ulceration of other part of lower leg; L97.822 Non-pressure chronic ulcer of other part of left lower leg with fat layer exposed; S80.812D Abrasion, left lower leg, subsequent encounter; E11.22 Type 2 diabetes mellitus with diabetic chronic kidney disease; I12.9 Hypertensive chronic kidney disease with stage 1 through stage 4 chronic kidney disease, or unspecified chronic kidney disease; N18.9 Chronic kidney disease, unspecified; J42 Unspecified chronic bronchitis; E78.5 Hyperlipidemia, unspecified; E66.01 Morbid (severe) obesity due to excess calories; Z68.41 Body mass index [BMI] 40.0-44.9, adult; Z79.4 Long term (current) use of insulin; Z87.01 Personal history of pneumonia (recurrent); Z79.82 Long term (current) use of aspirin; Z79.84 Long term (current) use of oral hypoglycemic drugs; Z79.899 Other long term (current) drug therapy; W18.09XD Striking against other object with subsequent fall, subsequent encounter ==